=== PATIENT | female | born 1995 | race Caucasian/White ===

== ENCOUNTER 2016-12-23 09:56 | Emergency (ER) | payer BC ==
[2016-12-23 10:02] VITALS: BP 144/78; PULSE 97; TEMP 99.1; BMI 37.1
[2016-12-23] MEDS ORDERED: IBUPROFEN 600 MG TABLET (FP) PO ONE (10:06)
--- NOTE | 2016-12-23 10:08 | PDOC ---
History of Present Illness - General Chief Complaint: Pain Stated Complaint: right knee pain Time Seen by Provider: 12/23/16 10:00 - History of Present Illness Initial Comments: 12/23/16 10:07 21 F with h/o hypothyroid presents to ER with R knee pain. Pt states that she was walking when she felt a pop in her R knee. She denies falling. Pt was able to ambulate afterwards but with significant pain with weight bearing. Pt states that she has had some knee problems in the past, stating that she has "almost no cartilage" in the same knee. Past History - Past Medical History Allergies/Adverse Reactions: Allergies Allergy/AdvReac Type Severity Reaction Status Date / Time No Known Allergies Allergy Verified 12/23/16 09:58 Home Medications: Ambulatory Orders Levothyroxine [Synthroid] 75 mcg PO DAILY 06/17/11 Ethynodiol D-Ethinyl Estradiol [Zovia 1-35E Tablet] 1 each PO DAILY 11/06/14 Sertraline HCl [Zoloft] 100 mg PO BID 11/06/14 Psychiatric Problems: Yes (anxiety) Thyroid Disease: Yes (HYPOTHYROID) - Immunization History Immunization Up to Date: Yes - Suicide/Smoking/Psychosocial Hx Smoking Status: No Smoking History: Never smoked Have you smoked in the past 12 months: No Number of Cigarettes Smoked Daily: 0 Information on smoking cessation initiated: No Hx Alcohol Use: No Drug/Substance Use Hx: No Substance Use Type: None Review of Systems - Review of Systems Comments:: 12/23/16 10:09 "GENERAL/CONSTITUTIONAL: No fever or chills. No weakness. HEAD, EYES, EARS, NOSE AND THROAT: No change in vision. No ear pain or discharge. No sore throat. CARDIOVASCULAR: No chest pain or shortness of breath. RESPIRATORY: No cough, wheezing, or hemoptysis. GASTROINTESTINAL: No nausea, vomiting, diarrhea or constipation. GENITOURINARY: No dysuria, frequency, or change in urination. MUSCULOSKELETAL: + R knee pain SKIN: No rash NEUROLOGIC: No headache, vertigo, loss of consciousness, or change in strength/ sensation. ENDOCRINE: No increased thirst. No abnormal weight change. HEMATOLOGIC/LYMPHATIC: No anemia, easy bleeding, or history of blood clots. ALLERGIC/IMMUNOLOGIC: No hives or skin allergy. " *Physical Exam - Vital Signs Last Vital Signs Temp Pulse Resp BP Pulse Ox 99.1 F 97 H 18 144/78 98 12/23/16 09:56 12/23/16 09:56 12/23/16 09:56 12/23/16 09:56 12/23/16 09:56 - Physical Exam Comments: 12/23/16 10:10 "GENERAL: Awake, alert, and fully oriented, in no acute distress HEAD: No signs of trauma EYES: PERRLA, EOMI, sclera anicteric, conjunctiva clear ENT: Auricles normal inspection, hearing grossly normal, nares patent, oropharynx clear without exudates. Moist mucosa NECK: Nontender, no stepoffs, Normal ROM, supple, no lymphadenopathy, JVD, or masses LUNGS: Breath sounds equal, clear to auscultation bilaterally. No wheezes, and no crackles HEART: Regular rate and rhythm, normal S1 and S2, no murmurs, rubs or gallops ABDOMEN: Soft, nontender, normoactive bowel sounds. No guarding, no rebound. No masses EXTREMITIES: R knee: + TTP lateral joint line with pain on varus stress, + Pain with Debra test, negative shanell, negative posterior drawer test, no significant joint effusion, no bony tenderness NEUROLOGICAL: Cranial nerves II through XII intact. 5/5 strength and sensation in all extremities, Normal speech, normal gait SKIN: Warm, Dry, normal turgor, no rashes or lesions noted. " ED Treatment Course - RADIOLOGY Radiology Studies Ordered: Category Date Time Status KNEE 3 POS-RIGHT [RAD] Stat Radiology 12/23/16 10:06 Ordered Medical Decision Making - Medical Decision Making 12/23/16 10:11 21 F with atraumatic R knee pain. Likely meniscal injury given + Debra test. No signs of acute fx on exam. Neurovascularly intact distally. - XR - Motrin - f/u ortho 12/23/16 11:[address] pt in knee immobilizer and give ortho f/u. *DC/Admit/Observation/Transfer Diagnosis at time of Disposition: Knee pain - Discharge Dispostion Disposition: HOME Condition at time of disposition: Stable - Patient Instructions Printed Discharge Instructions: DI for Knee Sprain Additional Instructions: Follow up with your orthopedic surgeon on Saturday. Your X ray did not show a fracture, but you may still have a torn ligament or a meniscus injury. Keep your knee in the knee immobilizer until your pain resolves or until you are able to see your orthopedic surgeon. Take ibuprofen 600mg every 8 hours as needed for pain. If you experience worsening pain, swelling, or any other concerning symptoms, return to the ER immediately. - Attestations Physician Attestion: 12/23/16 11:08 I, Dr. Tarik Heart MD, attest that this document has been prepared under my direction and personally reviewed by me in its entirety. I further attest, that it accurately reflects all work, treatment, procedures and medical decision -making performed by me.
== END 2016-12-23 11:45 | disposition home or self-care (01) ==
LOC: FER 09:56
DX: M25.561 Pain in right knee (principal)
CPT/HCPCS: 73562-TC-RT; 84703; 99282-25

== ENCOUNTER 2017-12-08 20:32 | Emergency (ER) | payer BC ==
--- NOTE | 2017-12-08 20:50 | PDOC ---
History of Present Illness <Doug Barnett - Last Filed: 12/08/17 20:51> - General History Source: Patient, Family Exam Limitations: No Limitations - History of Present Illness Initial Comments: 12/08/17 20:53 The patient is a 22 year old female, with a significant past medical history of jimmy (discontinued Synthroid about 1 month ago), who presents to the emergency department with sudden onset of mild redness and tingling to her right cheek just 20 minutes prior to arrival. She presents with her parents who state she was upset and crying after saying goodbye to a grandmother earlier and developed her symptoms while driving home with her brother shortly after. She states she feels her right cheek is "puffier" than her left. She reports feeling a localized sensation of decreased sensation to the right cheek just under her right eye. She denies radiation of symptoms. She denies any eye pain. She reports milf right eye pressure. She denies any visual changes, She denies any new lotions, makeup, detergents. She denies any dental pain. She denies ear pain. She denies any other complaints at this time. She denies taking medication for her symptoms. The patient denies chest pain, shortness of breath, headache and dizziness. The patient denies fever, chills, nausea, vomit, diarrhea and constipation. The patient denies dysuria, frequency, urgency and hematuria. Allergies: NKDA <Ema Roy - Last Filed: 12/08/17 20:57> - General Chief Complaint: Head/Neck problem Stated Complaint: RIGHT FACE TINGLING Time Seen by Provider: 12/08/17 20:35 Past History - Past Medical History COPD: No Psychiatric Problems: Yes (anxiety) Thyroid Disease: Yes (HYPOTHYROID) - Immunization History Immunization Up to Date: Yes - Suicide/Smoking/Psychosocial Hx Smoking Status: No Smoking History: Never smoked Have you smoked in the past 12 months: No Number of Cigarettes Smoked Daily: 0 Hx Alcohol Use: Yes (RARE) Drug/Substance Use Hx: No Substance Use Type: None <Doug Barnett - Last Filed: 12/08/17 20:51> <Ema Roy - Last Filed: 12/08/17 20:57> - Past Medical History Allergies/Adverse Reactions: Allergies Allergy/AdvReac Type Severity Reaction Status Date / Time almond Allergy Unknown Verified 12/08/17 20:38 Home Medications: Ambulatory Orders Levothyroxine [Synthroid] 75 mcg PO DAILY 06/17/11 Ethynodiol D-Ethinyl Estradiol [Zovia 1-35E Tablet] 1 each PO DAILY 11/06/14 Sertraline HCl [Zoloft] 100 mg PO BID 11/06/14 Review of Systems - Review of Systems Able to Perform ROS?: Yes Comments:: 12/08/17 20:54 ROS: A complete review of 10 out of 10 review of systems is taken and is negative apart from what is previously mentioned below and in the HPI. Constitutional: No recent illness; no fever ENT: No sore throat Eyes (+) right eye pressure. Face: (+) tingling and swelling to right cheek. Cardiovascular: No palpitations; no chest pain Pulmonary: No cough; no trouble breathing Gastrointestinal: No nausea; no vomiting; no diarrhea Genitourinary: No urinary problems; no hematuria Skin: (+)redness to right cheek Lymph system: No swollen glands Musculoskeletal: No joint swelling Neurological: No weakness; oo numbness; No Headache; no vertigo; no lightheadedness Psychiatric:No anxiety; no depression <Ema Roy - Last Filed: 12/08/17 20:57> *Physical Exam - Vital Signs Last Vital Signs Temp Pulse Resp BP Pulse Ox 98.8 F 68 18 119/83 100 12/08/17 20:34 12/08/17 20:34 12/08/17 20:34 12/08/17 20:34 12/08/17 20:34 <Doug Barnett - Last Filed: 12/08/17 20:51> - Vital Signs Last Vital Signs Temp Pulse Resp BP Pulse Ox 98.8 F 68 18 119/83 100 12/08/17 20:34 12/08/17 20:34 12/08/17 20:34 12/08/17 20:34 12/08/17 20:34 - Physical Exam Comments: 12/08/17 20:55 Vitals: Triage vital signs reviewed General Appearance: No acute distress, well nourished, well developed Head: Atraumatic Eyes: Pupils equal reactive round, extraocular movement intact Ears: TM's normal bilaterally Nose: Nares patent bilaterally; no nasal congestion Throat: Posterior oropharynx without erythema, mucous membranes moist Neck: Supple; No nuchal rigidity Extremities: Full range of motion to all extremities, no cyanosis, clubbing, or edema Skin: (+) mild redness to right cheek. mild inflammation to right cheek. no evidence of cellulitis. Warm and dry, no lesions, no petechiae Neuro: AOX3; Cranial Nerves 2-12 grossly intact, Strength intact to all extremities, Sensation intact to all extremities, gait normal Psych: Normal mood, normal affect <Ema Roy - Last Filed: 12/08/17 20:57> Medical Decision Making - Medical Decision Making 12/08/17 20:51 Mild facial swelling and slight redness but no obvious evidence of cellulitis patient was crying earlier and may have irritated underneath her right eye when trying her tears At this time no indication for antibiotics. We'll recommend Zyrtec or Shivani ice and observation if any severe significant swelling consistent with cellulitis patient and family will return to the emergency department. Findings, need for follow-up, strict return instructions discussed with patient. <Doug Barnett - Last Filed: 12/08/17 20:51> *DC/Admit/Observation/Transfer - Discharge Dispostion Decision to Admit order: No <Doug Barnett - Last Filed: 12/08/17 20:51> - Attestations Scribe Attestion: 12/08/17 20:56 Documentation prepared by Ema Roy, acting as medical biller for Doug Barnett MD, <Ema Roy - Last Filed: 12/08/17 20:57> Diagnosis at time of Disposition: Dermatitis - Discharge Dispostion Disposition: HOME Condition at time of disposition: Good - Referrals Referrals: Valeriy Sepulveda [Primary Care Provider] - - Patient Instructions Printed Discharge Instructions: Contact Dermatitis Additional Instructions: Take either [id number] Shivani or [id number] Zyrtec as directed on package. Ice affected area 20 minutes on 20 minutes off. Avoid facial creams or makeup to the affected area. Return to the emergency department if redness intensifies swelling intensifies if there is any eye involvement, Fever or if any of the symptoms become consistent with infection. Follow up with her primary care provider this week otherwise. - Post Discharge Activity
[2017-12-08 21:08] VITALS: BP 119/83; PULSE 68; TEMP 98.8; BMI 37.1
== END 2017-12-08 21:00 | disposition home or self-care (01) ==
LOC: FER 20:32
DX: L30.9 Dermatitis, unspecified (principal)
CPT/HCPCS: 99281-25

== ENCOUNTER 2018-04-24 02:15 | Emergency (ER) | payer BC ==
[2018-04-24 02:21] VITALS: BP 116/76; PULSE 114; TEMP 99.2; BMI 40.3
[2018-04-24] MEDS ORDERED: ACETAMINOPHEN WITH CODEINE 300MG/30MG TABLET PO ONE (02:28)
[2018-04-24] MEDS ORDERED: IBUPROFEN 600 MG TABLET (FP) PO ONE ×2 (02:29→02:30)
[2018-04-24] MEDS ORDERED: ACETAMINOPHEN WITH CODEINE 300MG/30MG TABLET ONE (02:29)
[2018-04-24] MEDS ORDERED: SODIUM CHLORIDE FOR INHALATION 3 ML VIAL.NEB IH ONE (02:34)
--- NOTE | 2018-04-24 02:35 | PDOC ---
History of Present Illness - General Chief Complaint: Respiratory Stated Complaint: COUGH SINCE SATURDAY Time Seen by Provider: 04/24/18 02:16 - History of Present Illness Initial Comments: 04/24/18 02:31 23 F with jimmy's, endometriosis, presents to ED with 3 days of cough. Pt states that she has had a dry nonproductive cough x 3 days that is worse at night. Denies any CP/SOB. Endorses subjective fevers but has only measured Tmax 99 at home. Denies abdominal pain/N/V/D. Denies any sick contacts. Past History - Past Medical History Allergies/Adverse Reactions: Allergies Allergy/AdvReac Type Severity Reaction Status Date / Time almond Allergy Unknown Verified 04/24/18 02:16 Home Medications: Ambulatory Orders Levothyroxine [Synthroid] 75 mcg PO DAILY 06/17/11 Sertraline HCl [Zoloft] 100 mg PO BID 11/06/14 Acetaminophen W/ Codeine #3 [Tylenol # 3 -] 1 tab PO HS #5 tablet MDD 1 tab 10/03 COPD: No Psychiatric Problems: Yes (anxiety) Thyroid Disease: Yes (HYPOTHYROID) - Immunization History Immunization Up to Date: Yes - Suicide/Smoking/Psychosocial Hx Smoking Status: No Smoking History: Never smoked Have you smoked in the past 12 months: No Number of Cigarettes Smoked Daily: 0 Information on smoking cessation initiated: No Hx Alcohol Use: No Drug/Substance Use Hx: No Substance Use Type: None Review of Systems - Review of Systems Comments:: 04/24/18 02:34 GENERAL/CONSTITUTIONAL: + subjective fever, no chills. No weakness. HEAD, EYES, EARS, NOSE AND THROAT: No change in vision. No ear pain or discharge. No sore throat. CARDIOVASCULAR: No chest pain, no shortness of breath, no loss of consciousness RESPIRATORY: + cough, no wheezing, or hemoptysis. GASTROINTESTINAL: No nausea, vomiting, diarrhea or constipation. GENITOURINARY: No dysuria, frequency, or change in urination. MUSCULOSKELETAL: No joint or muscle swelling or pain. No neck or back pain. SKIN: No rash NEUROLOGIC: No vertigo, no change in strength/sensation. ENDOCRINE: No increased thirst. No abnormal weight change. HEMATOLOGIC/LYMPHATIC: No anemia, easy bleeding, or history of blood clots. ALLERGIC/IMMUNOLOGIC: No hives or skin allergy. *Physical Exam - Vital Signs Last Vital Signs Temp Pulse Resp BP Pulse Ox 99.2 F 114 H 20 116/76 97 04/24/18 02:18 04/24/18 02:18 04/24/18 02:18 04/24/18 02:18 04/24/18 02:18 - Physical Exam Comments: 04/24/18 02:34 "GENERAL: Awake, alert, and fully oriented, in no acute distress. HEAD: No signs of trauma EYES: PERRLA, EOMI, sclera anicteric, conjunctiva clear ENT: Auricles normal inspection, hearing grossly normal, nares patent, oropharynx clear without exudates. Moist mucosa NECK: Nontender, no stepoffs, Normal ROM, supple, no lymphadenopathy, JVD, or masses LUNGS: Breath sounds equal, clear to auscultation bilaterally. No wheezes, and no crackles HEART: Regular rate and rhythm, normal S1 and S2, no murmurs, rubs or gallops ABDOMEN: Soft, nontender, normoactive bowel sounds. No guarding, no rebound. No masses EXTREMITIES: Normal range of motion, no edema. No clubbing or cyanosis. No cords, erythema, or tenderness NEUROLOGICAL: Cranial nerves II through XII intact. 5/5 strength and sensation in all extremities, Normal speech, normal gait, normal cerebellar function SKIN: Warm, Dry, normal turgor, no rashes or lesions noted. Moderate Sedation - Procedure Monitoring Vital Signs: Procedure Monitoring Vital Signs Temperature 99.2 F 04/24/18 02:18 Pulse Rate 114 H 04/24/18 02:18 Respiratory Rate 20 04/24/18 02:18 Blood Pressure 116/76 04/24/18 02:18 O2 Sat by Pulse Oximetry (%) 97 04/24/18 02:18 Medical Decision Making - Medical Decision Making 04/24/18 02:35 23 F with URI-like symptoms x 3 days. Clear lungs on exam. No indication for CXR at this time, as symptoms are consistent with Viral URI. - Tylenol w/ codeine - Saline neb 04/24/18 02:51 Pt reassessed - now feels significantly better. Repeat HR in 80s Pt is well appearing, with normal vitals. Clinically stable for DC at this time. I discussed the physical exam findings, ancillary test results and final diagnoses with the patient. I answered all of the patient's questions. The patient was satisfied with the care received and felt comfortable with the discharge plan and treatment plan. The patient agrees to follow up with the primary care physician within 24-72 hours. *DC/Admit/Observation/Transfer Diagnosis at time of Disposition: Cough - Discharge Dispostion Condition at time of disposition: Stable - Referrals - Patient Instructions Printed Discharge Instructions: DI for Viral Upper Respiratory Infection -- Adult Additional Instructions: Your cough is likely due to a viral infection. Take motrin or tylenol as needed for fevers. If needed, you can take one tylenol with codeine at night to help you sleep. If you experience worsening cough, high or persistent fevers, chest pain, difficulty breathing, or any other concerning symptoms, return to the ER immediately. Otherwise, follow up with your primary doctor within 1 week. - Post Discharge Activity - Attestations Physician Attestion: 04/24/18 02:48 I, Dr. Tarik Heart MD, attest that this document has been prepared under my direction and personally reviewed by me in its entirety. I further attest, that it accurately reflects all work, treatment, procedures and medical decision -making performed by me.
== END 2018-04-24 02:57 | disposition home or self-care (01) ==
LOC: FER 02:15
PROC: 3E0F7GC Introduction of Other Therapeutic Substance into Respiratory Tract, Via Natural or Artificial Opening (ICD-10-PCS; principal; 2018-04-24)
DX: R05 Cough (principal); E06.3 Autoimmune thyroiditis; E03.9 Hypothyroidism, unspecified
CPT/HCPCS: 99281-25